=== PATIENT | female | born 1995 | race Caucasian/White ===

== ENCOUNTER 2021-03-17 20:09 | Emergency (ER) | payer BC | END 2021-03-17 23:15 | disposition home or self-care (01) | LOC: ERS 20:09 | DX: S86.012A Strain of left Achilles tendon, initial encounter (principal); X50.1XXA Overexertion from prolonged static or awkward postures, initial encounter | CPT/HCPCS: 99283 ==

== ENCOUNTER 2021-08-29 14:22 | Outpatient (CLI) | payer BC | END 2021-08-29 14:23 | disposition home or self-care (01) | LOC: RAD 14:22 | PROVIDERS: ATTEND Physician Assistant | DX: M25.531 Pain in right wrist (principal) ==